=== PATIENT | female | born 1970 | race Caucasian/White ===

== ENCOUNTER → 2019-01-06 | Outpatient (CLI) | payer BC | LOC: SLEEP 07:08 | PROVIDERS: ATTEND Nurse Practitioner Family | DX: J42 Unspecified chronic bronchitis (principal); G47.10 Hypersomnia, unspecified; Z87.891 Personal history of nicotine dependence ==

== ENCOUNTER → 2019-01-19 | Outpatient (CLI) | payer BC ==
[~2019-01-19] MED LIST: HOLD METFORMIN - RECEIVED CONTRAST 20 ML VIAL IV SCH; IOHEXOL 350 MG/ML 100 ML (OMNIPAQUE 350) VIAL IV ONE; RT-ALBUTEROL SULF 2.5 MG/3 ML PRE-MIX VIAL INH ONE; RT-ALBUTEROL SULF 2.5 MG/3 ML PRE-MIX VIAL ONE
--- NOTE | 2019-01-19 15:18 | Diagnostic Imaging Report ---
PROCEDURE: CT chest with contrast only. TECHNIQUE: Multiple contiguous axial images were obtained through the chest after administration of intravenous contrast. Auto Exposure Controls were utilized during the CT exam to meet ALARA standards for radiation dose reduction. INDICATION: Breast carcinoma. Patient has shortness of air and bronchitis as well as cough. COMPARISON: No prior studies are available for comparison. FINDINGS: There are bilateral breast implants. No axillary, hilar or mediastinal lymphadenopathy is identified. No pericardial or pleural fluid is identified. Central airways are patent. There appear to be centrilobular emphysematous changes in the upper lobes. There is some linear scarring or atelectasis in the right lower lobe. No infiltrate, nodule or mass is identified. The upper abdomen is unremarkable. IMPRESSION: Centrilobular emphysematous changes. No acute feature is detected. Dictated by: Dictated on workstation # [id number]
== END ==
LOC: RAD 14:05
PROVIDERS: ATTEND Nurse Practitioner Family
DX: C50.919 Malignant neoplasm of unspecified site of unspecified female breast (principal); J43.2 Centrilobular emphysema; J42 Unspecified chronic bronchitis; G47.10 Hypersomnia, unspecified; Z87.891 Personal history of nicotine dependence
CPT/HCPCS: 71260